=== PATIENT | male | born 1980 | race Caucasian/White ===

== ENCOUNTER 2022-01-23 20:28 | Emergency (ER) | payer BC ==
[~2022-01-23 20:28] MED LIST: CLINDAMYCIN HC150 MG PO; ZYVOX600 MG PO
[2022-01-23] MEDS ORDERED: IBUPROFEN600 MG PO (22:24)
== END 2022-01-23 22:32 | disposition home or self-care (01) ==
LOC: ER1 20:28
DX: M72.2 Plantar fascial fibromatosis (principal); F17.210 Nicotine dependence, cigarettes, uncomplicated
CPT/HCPCS: 73630; 99283